=== PATIENT | female | born 1990 | race Caucasian/White ===

== ENCOUNTER 2020-08-14 21:12 | Outpatient (REF) | payer BC, SELFPAY ==
[2020-08-14 21:56] LABS: Glucose 89 mg/dL (74-106); TSH (W/Ref FT4) 2.63 uIU/mL (0.36-3.74)
== END 2020-08-14 21:13 | disposition home or self-care (01) ==
LOC: NCHCN 21:12
PROVIDERS: Visit Provider Nurse Practitioner Family
DX: Z00.00 Encounter for general adult medical examination without abnormal findings (principal); Z13.29 Encounter for screening for other suspected endocrine disorder; Z13.1 Encounter for screening for diabetes mellitus
CPT/HCPCS: 82947; 84443